=== PATIENT | male | born 1950 | race Two or more races ===

== ENCOUNTER 2019-07-11 13:57 | Inpatient (IN) | payer SELFPAY ==
[~2019-07-11] VITALS: Ht 167.6 cm; Wt 63.5 kg
[~2019-07-11 13:57] MED LIST: GLIPIZIDE5 MG ORAL; METFORMIN HCL500 M1 ORAL
[2019-07-11 14:00] VITALS: BP 147/68
[2019-07-11 14:25] LABS: BASOPHILS % (AUTO) 0.9 % (0.0-2.0); EOSINOPHILS % (AUTO) 3.1 % (0.0-3.0); HEMATOCRIT 42.7 % (42.0-52.0); HEMOGLOBIN 14.4 G/DL (14.2-18.0); LYMPHOCYTES % (AUTO) 22.7 % (20.0-45.0); MEAN CORPUSCULAR VOLUME 89 FL (80-99); MONOCYTES % (AUTO) 5.2 % (1.0-10.0); NEUTROPHILS % (AUTO) 68.2 % (45.0-75.0); PLATELET COUNT 221 K/UL (150-450); RED CELL DISTRIBUTION WIDTH 11.3 % (11.6-14.8); WHITE BLOOD COUNT 5.9 K/UL (4.8-10.8)
[2019-07-11 14:29] LABS: APPEARANCE,URINE CLEAR; BILIRUBIN, URINE NEGATIVE (NEGATIVE); COLOR,URINE PALE YELLOW; GLUCOSE, URINE (UA) 4+ (NEGATIVE); KETONES,URINE NEGATIVE (NEGATIVE); LEUKOCYTE ESTERASE ,URINE NEGATIVE (NEGATIVE); NITRITE,URINE NEGATIVE (NEGATIVE); PH,URINE 5 (4.5-8.0); PROTEIN,URINE 4+ (NEGATIVE); UROBILINOGEN,URINE NORMAL MG/DL (0.0-1.0)
[2019-07-11 14:37] LABS: ANION GAP 7 mmol/L (5-15); BLOOD UREA NITROGEN 29 mg/dL (7-18); CALCIUM 8.4 MG/DL (8.5-10.1); CARBON DIOXIDE 29 MMOL/L (21-32); CHLORIDE 104 MMOL/L (98-107); CREATININE 1.6 MG/DL (0.55-1.30); POTASSIUM 4.7 MMOL/L (3.5-5.1); SODIUM 139 MMOL/L (136-145)
[2019-07-11 14:42] LABS: ALANINE AMINOTRANSFERASE 16 U/L (12-78); ALBUMIN 2.9 G/DL (3.4-5.0); ALBUMIN/GLOBULIN RATIO 0.9 (1.0-2.7); ALKALINE PHOSPHATASE 141 U/L (46-116); ASPARTATE AMINO TRANSFERASE 12 U/L (15-37); BILIRUBIN,TOTAL 0.7 MG/DL (0.2-1.0)
[2019-07-11] MEDS ORDERED: Insulin Human Regular 100units/ml 3ml IV ONE (15:00)
--- NOTE | 2019-07-11 15:28 | Emergency Room Report ---
History of Present Illness General Chief Complaint: Generalized Weakness Source: Patient Present Illness HPI 68-year-old male presents ED for evaluation. Patient brought in by EMS from home. Complaining of weakness x1 day. Accu-Chek over 400. States he is a diabetic. Takes insulin. States he is compliant with his meds. Denies fevers or chills. Denies cough. Denies sick contacts or recent travel. No other aggravating relieving factors. Denies any other associated symptoms Allergies: Coded Allergies: No Known Allergies (Unverified , 07/11/19) Patient History Past Medical History: DM Past Surgical History: none Pertinent Family History: none Social History: Denies: smoking, alcohol use, drug use Immunizations: UTD Reviewed Nursing Documentation: PMH: Agreed; PSxH: Agreed Nursing Documentation-PMH Hx Diabetes: Yes Review of Systems All Other Systems: negative except mentioned in HPI Physical Exam Vital Signs Date Time Temp Pulse Resp B/P (MAP) Pulse Ox O2 Delivery O2 Flow Rate FiO2 07/11/19 13:51 98.2 54 17 143/70 (94) 100 Room Air Sp02 EP Interpretation: reviewed, normal General Appearance: no apparent distress, alert, GCS 15, non-toxic Head: normocephalic, atraumatic Eyes: bilateral eye normal inspection, bilateral eye PERRL ENT: hearing grossly normal, normal pharynx, no angioedema, normal voice Neck: full range of motion, supple/symm/no masses Respiratory: chest non-tender, lungs clear, normal breath sounds, speaking full sentences Cardiovascular #1: regular rate, rhythm, no edema Cardiovascular #2: 2+ carotid (R), 2+ carotid (L), 2+ radial (R), 2+ radial (L) , 2+ dorsalis pedis (R), 2+ dorsalis pedis (L) Gastrointestinal: normal bowel sounds, non tender, soft, non-distended, no guarding, no rebound Rectal: deferred Genitourinary: normal inspection, no CVA tenderness Musculoskeletal: back normal, normal range of motion, gait/station normal, non- tender Neurologic: alert, motor strength/tone normal, oriented x3, sensory intact, responsive, speech normal Psychiatric: judgement/insight normal, memory normal, mood/affect normal, no suicidal/homicidal ideation Reflexes: 3+ bicep (R), 3+ bicep (L), 3+ tricep (R), 3+ tricep (L), 3+ knee (R) , 3+ knee (L) Skin: other - see nursing skin notes Lymphatic: no adenopathy Medical Decision Making Diagnostic Impression: Primary Impression: Renal insufficiency Additional Impressions: Hyperglycemia Episode of generalized weakness ER Course Hospital Course 68-year-old male presenting to ED with generalized weakness, elevated fingerstick Differential diagnoses include: ETOH/drug ingestion, sepsis, DKA Clinical course Patient placed on stretcher. On monitoring specialist. After initial history and physical I ordered labs, IV fluids, EKG Labs-glucose greater than 400, BUN/Cr EKG - sinus bradycardia no acute ischemic changes interpreted by me patient given additional IV fluids given insulin. I discussed with patient. Still feels dizzy and weak. Case discussed with Dr. Rodriguez and he agreed to accept the patient to his service for further care and support i. I feel this is a highly complex case requiring extensive working including EKG/Rhythm strip, Xray/CT/US, Blood/urine lab work, repeat exams while in ED, and administration of strong opiates/narcotics for pain control, admission to hospital or close patient follow up. diagnosis - renal insufficiency, hyperglycemia, episode of generaized weakness admitted to floor in serious condition Labs Test 07/11/19 14:04 White Blood Count 5.9 K/UL (4.8-10.8) Red Blood Count 4.80 M/UL (4.70-6.10) Hemoglobin 14.4 G/DL (14.2-18.0) Hematocrit 42.7 % (42.0-52.0) Mean Corpuscular Volume 89 FL (80-99) Mean Corpuscular Hemoglobin 30.0 PG (27.0-31.0) Mean Corpuscular Hemoglobin Concent 33.7 G/DL (32.0-36.0) Red Cell Distribution Width 11.3 % (11.6-14.8) Platelet Count 221 K/UL (150-450) Mean Platelet Volume 7.0 FL (6.5-10.1) Neutrophils (%) (Auto) 68.2 % (45.0-75.0) Lymphocytes (%) (Auto) 22.7 % (20.0-45.0) Monocytes (%) (Auto) 5.2 % (1.0-10.0) Eosinophils (%) (Auto) 3.1 % (0.0-3.0) Basophils (%) (Auto) 0.9 % (0.0-2.0) Urine Color Pale yellow Urine Appearance Clear Urine pH 5 (4.5-8.0) Urine Specific [place] 1.010 (1.005-1.035) Urine Protein 4+ (NEGATIVE) Urine Glucose (UA) 4+ (NEGATIVE) Urine Ketones Negative (NEGATIVE) Urine Blood 1+ (NEGATIVE) Urine Nitrite Negative (NEGATIVE) Urine Bilirubin Negative (NEGATIVE) Urine Urobilinogen Normal MG/DL (0.0-1.0) Urine Leukocyte Esterase Negative (NEGATIVE) Urine RBC 0-2 /HPF (0 - 0) Urine WBC 0 /HPF (0 - 0) Urine Squamous Epithelial Cells Occasional /LPF Urine Bacteria Occasional /HPF (NONE) Sodium Level 139 MMOL/L (136-145) Potassium Level 4.7 MMOL/L (3.5-5.1) Chloride Level 104 MMOL/L (98-107) Carbon Dioxide Level 29 MMOL/L (21-32) Anion Gap 7 mmol/L (5-15) Blood Urea Nitrogen 29 mg/dL (7-18) Creatinine 1.6 MG/DL (0.55-1.30) Estimat Glomerular Filtration Rate 43.3 mL/min (>60) Glucose Level 421 MG/DL (74-106) Calcium Level 8.4 MG/DL (8.5-10.1) Magnesium Level 1.9 MG/DL (1.8-2.4) Total Bilirubin 0.7 MG/DL (0.2-1.0) Aspartate Amino Transf (AST/SGOT) 12 U/L (15-37) Alanine Aminotransferase (ALT/SGPT) 16 U/L (12-78) Alkaline Phosphatase 141 U/L (46-116) Total Protein 6.2 G/DL (6.4-8.2) Albumin 2.9 G/DL (3.4-5.0) Globulin 3.3 g/dL Albumin/Globulin Ratio 0.9 (1.0-2.7) Acetone Level Negative (NEGATIVE) EKG Diagnostic Results Rate: bradycardiac Rhythm: NSR ST Segments: no acute changes ASA given to the pt in ED: No Rhythm Strip Diag. Results EP Interpretation: yes Rhythm: NSR, no PVC's, no ectopy Last Vital Signs Date Time Temp Pulse Resp B/P (MAP) Pulse Ox O2 Delivery O2 Flow Rate FiO2 07/11/19 15:23 57 18 Room Air 07/11/19 14:00 98.2 147/68 99 Status: improved Disposition: ADMITTED INPATIENT Condition: Serious Referrals: NOT CHOSEN IPA/,REFERRING (PCP) Kingsley August MD Jul 11, 2019 15:28
[2019-07-11 16:11] VITALS: BP 127/61
[2019-07-11] MEDS ORDERED: TOUJEO MAX300 UNIT/1 SQ (17:12)
[2019-07-11 20:00] VITALS: BP 157/71
[2019-07-11] MEDS ORDERED: Levemir Flexpen SUBQ SCH (21:00)
[2019-07-11] MEDS: NovoLOG Insulin Flexpen SUBQ SCH (21:02)
[2019-07-12] VITALS: BP 147/68
[2019-07-12 04:00] VITALS: BP 148/69
[2019-07-12 05:27] LABS: BASOPHILS % (AUTO) 1.1 % (0.0-2.0); EOSINOPHILS % (AUTO) 3.8 % (0.0-3.0); HEMATOCRIT 37.9 % (42.0-52.0); HEMOGLOBIN 13.3 G/DL (14.2-18.0); LYMPHOCYTES % (AUTO) 26.1 % (20.0-45.0); MEAN CORPUSCULAR VOLUME 88 FL (80-99); MONOCYTES % (AUTO) 5.5 % (1.0-10.0); NEUTROPHILS % (AUTO) 63.4 % (45.0-75.0); PLATELET COUNT 204 K/UL (150-450); RED CELL DISTRIBUTION WIDTH 11.3 % (11.6-14.8); WHITE BLOOD COUNT 6.8 K/UL (4.8-10.8)
[2019-07-12 05:39] LABS: ANION GAP 5 mmol/L (5-15); BLOOD UREA NITROGEN 22 mg/dL (7-18); CALCIUM 8.3 MG/DL (8.5-10.1); CARBON DIOXIDE 27 MMOL/L (21-32); CHLORIDE 112 MMOL/L (98-107); CREATININE 1.4 MG/DL (0.55-1.30); POTASSIUM 4.5 MMOL/L (3.5-5.1); SODIUM 144 MMOL/L (136-145)
[2019-07-12] MEDS: NovoLOG Insulin Flexpen SUBQ SCH ×2 (06:15→11:30)
[2019-07-12 08:00] VITALS: BP 172/78
[2019-07-12 08:30] VITALS: BP 144/72
[2019-07-12] MEDS ORDERED: TOUJEO MAX300 UNIT/1 SQ (10:18)
[2019-07-12 12:00] VITALS: BP 158/73
--- NOTE | 2019-07-12 17:00 | History and Physical Report ---
DATE OF ADMISSION: 07/11/2019 HISTORY OF PRESENT ILLNESS: This is a 68-year-old male, who came to the hospital with hyperglycemia. He has been complaining of weakness. He is a known diabetic. He has been with his medication, takes Toujeo. He was admitted to the hospital with significant hyperglycemia and weakness. REVIEW OF SYSTEMS: He denies any headaches, hematemesis, melena, hematochezia, or weight loss. PAST MEDICAL HISTORY: Diabetes mellitus, insulin dependent. ALLERGIES: None reported. PAST SURGICAL HISTORY: None. PHYSICAL EXAMINATION: GENERAL: Reveals a 68-year-old male. VITAL SIGNS: Blood pressure 140/70, heart rate 54, respiratory rate 18. He is afebrile. HEENT: Unremarkable. CHEST: Clear breath sounds bilaterally with normal heart sounds. ABDOMEN: Soft. EXTREMITIES: There is no edema. NEUROLOGIC: Nonfocal. LABORATORY DATA: Lab testing shows normal CBC and BMP with the exception of glucose initially 421, this morning is 165. Toxicology is negative. Acetone is negative. IMPRESSION: Hyperglycemia without acidosis. DISCUSSION: The patient is doing well at this time. We will discharge home with resumption of home medications and outpatient followup. Harpal Rodriguez M.D. DR: OLIVA JOB#: [id number] CC:
--- NOTE | 2019-07-13 11:58 | Discharge Summary ---
Discharge Summary Discharge Summary _ DATE OF ADMISSION: 07/11/2019 DATE OF DISCHARGE: 07/12/2019 DISCHARGED BY: Dr. Rodriguez REASON FOR ADMISSION: 68 years old male with past medical history of insulin-dependent diabetes mellitus , presented to emergency department with generalized weakness for 1 day . upon evaluation Accu-Chek was over 400. Vital signs were stable. Laboratory work-up revealed no leukocytosis, stable hemoglobin and hematocrit. Urinalysis revealed no evidence of urinary tract infection. Stable electrolytes. BUN 29 creatinine 1.6. Glucose was 421. Stable LFT. EKG revealed sinus bradycardia with a heart rate of 57, no acute ischemic changes. Anion gap 7. Patient received insulin, started on IV fluids and admitted for further management. HOSPITAL COURSE: Patient admitted to medical surgical floor, started on IV hydration and sliding scale of insulin along with a long-acting Levemir as needed. No evidence of acidosis on labs. Acetone level was negative . The next morning blood sugar 165. Creatinine from 1.6 down to 1.4. Diabetic diet and diabetic teaching provided. Patient clinically stabilized and was ready for discharge home. Due to rapid and unexpected improvement in patient's condition, the patient was discharged in one day. FINAL DIAGNOSES: Hyperglycemia Diabetes mellitus, insulin dependent DISCHARGE MEDICATIONS: See Medication Reconciliation list. DISCHARGE INSTRUCTIONS: Patient was discharged home. Stressed importance to comply with diabetic diet and insulin. Follow-up with primary care provider in 1 week I have been assigned to dictate discharge summary for this account. I was not involved in the patient's management. Nyasia Prado NP Jul 13, 2019 11:58
== END 2019-07-12 13:36 | disposition home or self-care (01) | DRG 639 ==
LOC: EDBD 13:57 → EMR 14:45 → 3E 15:34 → EDBEDREQ 15:45 → OBSVTOIN 17:42
DX: E11.65 Type 2 diabetes mellitus with hyperglycemia (principal); Z79.4 Long term (current) use of insulin
CPT/HCPCS: 36415; 80048; 80053; 81003; 82009; 82962; 83735; 85025; 93005; 96361; 96374; 99285; J1815; J7030; S5561